=== PATIENT | male | born 1980 | race Caucasian/White ===

== ENCOUNTER 2017-10-05 14:57 | Emergency (ER) | END 2017-10-05 16:18 | disposition home or self-care (01) ==

== ENCOUNTER 2018-04-12 19:22 | Emergency (ER) | payer MEDICAID ==
[~2018-04-12] VITALS: Ht 162.6 cm; Wt 77.4 kg
[~2018-04-12 19:22] MED LIST: CEPH-443 PO; IBUP-1542 PO
[2018-04-12 19:32] VITALS: RESP 18; Ht 162.6 cm; Wt 77.4 kg
[2018-04-12] MEDS ORDERED: KETOROLAC 30 MG INJ IM STA (21:45)
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
[2018-04-12] MEDS ORDERED: CYCL10TA7 PO (23:52)
[2018-04-12] MEDS ORDERED: IBUP800T48 PO (23:52)
[2018-04-13 00:02] VITALS: BP 125/76; PULSE 76
== END 2018-04-13 00:02 | disposition home or self-care (01) ==
LOC: FTE 19:22
DX: S39.92XA Unspecified injury of lower back, initial encounter (principal); T14.8XXA Other injury of unspecified body region, initial encounter; M62.838 Other muscle spasm; V43.52XA Car driver injured in collision with other type car in traffic accident, initial encounter
CPT/HCPCS: 71046; 72100; 81001; J1885; 96372